=== PATIENT | female | born 1980 | race African-American/Black ===

== ENCOUNTER 2019-03-27 21:11 | Emergency (ER) | payer OTHER ==
[~2019-03-27] VITALS: Ht 149.9 cm; Wt 95.3 kg
[2019-03-27 22:12] LABS: PLATELET COUNT 197 K/uL (152-353)
[2019-03-27 22:16] LABS: POTASSIUM 3.8 mmol/L (3.6-5.2)
[2019-03-27 23:40] VITALS: BP 104/59; TEMP 97.6
== END 2019-03-27 23:46 | disposition home or self-care (01) ==
LOC: ED 21:11
PROVIDERS: Internal Medicine
DX: N30.90 Cystitis, unspecified without hematuria (principal); R51 Headache; D72.829 Elevated white blood cell count, unspecified; R00.0 Tachycardia, unspecified
CPT/HCPCS: 36415; 80053; 81002; 85027; 87077; 87086; 87088; 87186; 87502; 87651; 93005; 96365; 96375; 99284; J0696; J1885